=== PATIENT | female | born 1985 | race Caucasian/White ===

== ENCOUNTER 2024-03-02 09:15 | Emergency (ER) | payer OTHER, SELFPAY ==
[2024-03-02 09:18] VITALS: BP 139/105
--- NOTE | 2024-03-02 09:46 | ED.GENMED ---
History of Present Illness
General
Chief Complaint: Bowel Problem
Time Seen by Provider: 03/02/24 09:27
Travel History
Have you had any contact with someone who has COVID-19?: No
Do you have any symptoms of coronavirus? Fever > 100 degrees, chills, cough, shortness of breath, sore throat, loss of taste or smell, muscle aches, or headache?: No
History of Present Illness
History of Present Illness:
38-year-old female presents the emergency department for evaluation of constipation for the past 5 days. She is still passing gas. Denies any abdominal bloating or distention. She endorses significant life stressors as well. Has been trying once
daily Colace without relief
Past History
Past History
ED Past Medical History: Psychiatric
ED Past Surgical History: Other (Adenoids, myringotomy tubes)
Social History
Tobacco: Non-smoker
Alcohol: None
Personal: Single
Living: with family
Employment: Employed
Family History
Family History: Other (Noncontributory)
Review of Systems
Review of Systems
Allergies reviewed?: Yes
All Other Systems: ROS reviewed and negative except as documented in HPI and ROS
Phy Exam
Physical Exam
Physical Exam:
GEN: Well appearing, NAD, WDWN
HEENT: Oral mucosa moist, no scleral icterus
Cardiac: Regular rate
Lung: No respiratory distress, no tachypnea
Abd: Soft, non distended, non tender
Rectal: Exam performed w/ beverage inspection machine tender Zoë Ramirez at bedside. Minimal soft stool in rectum, no hemorrhoids, no bleeding
MSK: No gross deformity or injuries
Skin: Good color, no pallor or jaundice, no rashes
Neuro: AO x3, moves all extremities freely
Psych: Calm, cooperative
Course
Orders/Labs/Results
Orders:
Orders
03/02/24 09:48
Magnesium Citrate [Citroma] 300 ml PO ONCE ONE
Vital Signs
Initial and Last Documented VS:
Initial Vital Signs
Temp Pulse Resp BP Pulse Ox
98.7 F 89 18 139/105 98
03/02/24 09:18 03/02/24 09:18 03/02/24 09:18 03/02/24 09:18 03/02/24 09:18
Last Documented Vital Signs
Temp Pulse Resp BP Pulse Ox
98.7 F 89 18 139/105 98
03/02/24 09:18 03/02/24 09:18 03/02/24 09:18 03/02/24 09:18 03/02/24 09:18
MDM/Problems Addressed
MDM/Problems Addressed:
No clinical signs of bowel obstruction or fecal impaction. Laxatives recommended, increased fluids and daily fiber
*Critical Care Note
Total Time (30-74mins, 75-104mins- exclusive of procedures): Not Applicable
ED Attending Note
-
Portions of this chart may have been created with voice recognition software.� Occasional wrong word or��sound alike� substitutions may have occurred due to the inherent limitations of voice recognition software.
Discharge Plan
Departure
Patient Disposition: Home (Routine Discharge)
Date of Disposition: 03/02/24
Time of Disposition: 09:48
Patient with high blood pressure during this ER visit?: No
Discharge Problem:
Constipation
Instructions: Constipation, Adult (DC)
Prescriptions:
No Action
escitalopram oxalate 10 MG tablet
10 mg PO QPM
ondansetron 4 MG tablet,disintegrating
4 mg PO TIDPRN PRN (Reason: nausea/vomiting) Qty: 10 0RF
Referrals:
Romy Isaac MD [Family Provider] -
Activity Restrictions/Additional Instructions:
Increase dietary fiber
Increase daily fluids
Continue with Colace twice daily
Interventions
Interventions:
*Risk Screen - Suicide Last Done: 03/02/24 09:18
*General Assessment Last Done: 03/02/24 09:18
*Neglect/Abuse Screening Last Done: 03/02/24 09:18
*Nursing Disposition Last Done: 03/02/24 10:17
[facility]-Egaclqna[facility] Assessment Last Done: 03/02/24 10:15
Discharge Date and Time
Discharge Date/Time: 03/02/24 10:23
Print Language: TURKMEN
[2024-03-02] MEDS: CITROMA 300 ML PO (10:05)
== END 2024-03-02 10:23 | disposition home or self-care (01) ==
LOC: EMR 09:15
PROVIDERS: EMERGENCY PHYSICIAN Emergency Medicine; FAMILY PHYSICIAN Internal Medicine
DX: K59.00 Constipation, unspecified (principal)
CPT/HCPCS: 99282

== ENCOUNTER → 2025-04-02 19:16 | Outpatient (REF) | payer OTHER, SELFPAY | LOC: WDC 19:16 | PROVIDERS: ATTENDING PHYSICIAN Nurse Practitioner Adult Health | DX: Z12.31 Encounter for screening mammogram for malignant neoplasm of breast (principal) | CPT/HCPCS: 77063; 77067 ==

== ENCOUNTER → 2025-04-13 09:03 | Outpatient (REF) | payer OTHER, SELFPAY | LOC: WDC 09:03 | PROVIDERS: ATTENDING PHYSICIAN Nurse Practitioner Adult Health | DX: R92.8 Other abnormal and inconclusive findings on diagnostic imaging of breast (principal) | CPT/HCPCS: 76642 ==

== ENCOUNTER 2025-08-17 20:14 | Emergency (ER) | payer OTHER, SELFPAY ==
[2025-08-17 20:20] VITALS: BP 142/94
[2025-08-17 20:44] LABS: Hematocrit 36.5 % (37.0-47.0); Hemoglobin 12.3 g/dL (12.0-16.0); Mean Corp Hgb Conc. 33.7 g/dL (33.0-37.0); Mean Corpuscular Volume 81.1 fL (81.0-99.0); Nucleated Red Blood Cells % 0 %; Platelet Count 266 10^3/uL (130-400); Red Cell Dist. Width 12.0 % (11.5-14.5); Urine Character Clear (Clear)
[2025-08-17 21:08] LABS: Urine Red Blood Cell 0-2 /HPF (0-2); Urine Squamous Cell 26-30 /LPF (Few); Urine White Cell 0-2 /HPF (0-5)
[2025-08-17 21:19] LABS: ALT (SGPT) 15 U/L (0-35); AST (SGOT) 24 U/L (14-36); Albumin 5.0 g/dl (3.5-5.0); Alkaline Phosphatase 57 U/L (38-126); Blood Urea Nitrogen 8 mg/dl (7-17); Calcium 10.3 mg/dl (8.4-10.2); Carbon Dioxide 31 mmol/L (22-30); Chloride 101 mmol/L (98-107); Glucose 103 mg/dl (70-99); Lipase 66 U/L (23-300); Potassium 4.2 mmol/L (3.5-5.1); Sodium 137 mmol/L (135-145); Total Protein 8.3 g/dl (6.3-8.2); eGFR > 60.00
--- NOTE | 2025-08-17 23:27 | ED.GENMED ---
History of Present Illness
General
Chief Complaint: Abdominal Symptoms
Source: patient and spouse (Girlfriend/fianc�)
Exam Limitations: none
Time Seen by Provider: 08/17/25 22:28
Nursing documentation reviewed up to this point in time: agreed with
History of Present Illness
History of Present Illness:
HISTORY OF PRESENT ILLNESS
The patient is a 40-year-old female who was seen by PCP July 24 for complaints of burning pelvic pain, including a vaginal burning sensation. A urinalysis was performed and was negative, ruling out a urinary tract infection. A vaginal swab
returned positive for Odalis glabrata. The patient was treated with a one-time vaginal antifungal medication. She reported initial improvement within a couple of days. However, over the past several days, symptoms have relapsed, coinciding with
recent stress, including the passing of her grandmother yesterday.
The patient describes that the burning sensation affects the entire perineal area without any abnormal vaginal discharge, other than heavier menstrual flow with clots, which is unusual for her. She just completed her menstrual cycle, which lasted
for two to three days, beginning around August 11. Typically, her cycles are regular. She has noted cramping localized to the pelvic region during menstruation.
Additionally, recent blood tests indicated normal levels of Luteinizing Hormone and Follicle Stimulating Hormone, progesterone, estradiol and testosterone level. DHEA was elevated. The patient does not follow with a diesel pile hammer operator regularly. She did
not have a speculum exam during her last visit in July, PCP did a vaginal swab only.
She has had no nausea nor vomiting, moving her bowels normally. She denies dysuria nor urgency nor hematuria. No back pain or flank pain.
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
She resides with her girlfriend/fianc�. They maintain a monogamous relationship. No prior history of STD nor previous episodes of vulvovaginitis.
Her daily medications include Lexapro 10 mg, vitamin D supplement.
Past History
Past History
ED Past Medical History: Psychiatric
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 Left eye capsulotomy)
Social History
Tobacco: Non-smoker
Alcohol: None
Drug: None
Personal: Partner (Engaged)
Living: with family
Employment: Employed
Family History
Family History: Other (Noncontributory)
Phy Exam
Physical Exam
Physical Exam:
GENERAL: Alert , in no apparent distress. 40-year-old woman appears her stated age, bright and alert, pleasant, appears in no acute distress. Fianc� is accompanying.
EYE: anicteric
NECK: Supple, nontender, no meningismus, no significant adenopathy.
ENT: oral mucosa is moist. No rhinorrhea.
CARDIAC: Regular rate and rhythm. no murmur.
LUNGS: Clear breath sounds bilaterally, no acute respiratory distress, no wheezes/rales/rhonchi
ABDOMEN: Soft, nondistended, minimal suprapubic tenderness with deep palpation only, no r/g, no cvat. normoactive BS. No palpable masses.
: Speculum exam reveals moderate creamy to curd-like whitish vaginal discharge. There is no cervical nor vaginal excoriations nor soft tissue swelling. External vulva has very minimal erythema at vaginal introitus otherwise benign in appearance.
No ulcerations. No cervical motion tenderness. Uterus is normal in size. Nontender. No adnexal masses nor tenderness.
NEUROLOGICAL: Alert and oriented x3, no focal neuro deficits. Gait is head and steady.
SKIN: Warm and dry, normal color, skin intact. No rash.
MUSCULOSKELETAL: No C/C/E. peripheral pulses are full and equal b/l. No palpable tenderness.
PSYCH: Normal and appropriate interaction.
Course
Orders/Labs/Results
Orders:
Orders
08/17/25 20:36
Complete Blood Count/With Diff Urgent
Comprehensive Metabolic Panel Urgent
Lipase Urgent
Urinalysis Reflex To Culture Urgent
Date Specimen was Collected: 08/17/25
Time Specimen was Collected: 20:25
Urine Microscopic Reflex Cult Urgent
08/17/25 23:25
US Pelvis W Transvag Combined Urgent
Comment:
Reason For Exam: acute pelvic pain
08/17/25 23:38
Chlamydia/GC by PCR Urgent
BONNIE Source: Endo-Cervical
Specimen Description:
Source:: CERVIX
Date Specimen was Collected: 08/17/25
Time Specimen was Collected: 23:33
Genital Culture Urgent
BONNIE Source: Vagina
Specimen Description:
Date Specimen was Collected: 08/17/25
Time Specimen was Collected: 23:33
Abnormal Lab Results
08/17/25
20:36
Hct 36.5 L %
(37.0-47.0)
Carbon Dioxide 31 H mmol/L
(22-30)
Glucose 103 H mg/dl
(70-99)
Calcium 10.3 H mg/dl
(8.4-10.2)
Total Bilirubin 1.7 H mg/dl
(0.2-1.3)
Total Protein 8.3 H g/dl
(6.3-8.2)
Ur Occult Blood Reflex 2+ A
(Negative)
Urine Bacteria (Reflex) Few A
(Negative)
Urine Yeast Few A
(Negative)
Urine Albumin (Reflex) 1+ A
(Neg - Trace)
08/17/25 20:36
08/17/25 20:36
Vital Signs
Initial and Last Documented VS:
Initial Vital Signs
Temp Pulse Resp BP Pulse Ox
98.5 F 86 20 142/94 100
08/17/25 20:20 08/17/25 20:20 08/17/25 20:20 08/17/25 20:20 08/17/25 20:20
Last Documented Vital Signs
Temp Pulse Resp BP Pulse Ox
98.5 F 86 20 142/94 100
08/17/25 20:20 08/17/25 20:20 08/17/25 20:20 08/17/25 20:20 08/17/25 23:40
MDM/Problems Addressed
Differential Diagnosis Includes:
DIFFERENTIAL DIAGNOSIS
The Differential Diagnosis includes, in no particular order and is not limited to:
- Vulvovaginal candidiasis
- Bacterial vaginosis
- Pelvic inflammatory disease
- Urinary tract infection
- Hormonal changes related to menstrual cycle
- Bartholins cyst
- Contact dermatitis
- Vulvodynia
- Endometriosis
- Ovarian cyst
MDM/Problems Addressed:
Acute pelvic pain, vaginal burning
Heavy menstrual flow with clots and cramping
*Radiology
Radiology exam reviewed: radiology read reviewed (Pelvic ultrasound is unremarkable)
*Pulse Oximetry
SaO2: 100
Oxygen Mode of Delivery: Room air
Patient hypoxic: no
*Critical Care Note
Total Time (30-74mins, 75-104mins- exclusive of procedures): Not Applicable
Update Note
Update Note:
01:20
Pelvic ultrasound is unremarkable.
Genital cultures are pending.
Highly suspect partially treated vaginal candidiasis and will treat with a course of Diflucan.
Recommend follow-up with PCP for recheck.
ED Attending Note
-
Portions of this chart may have been created with voice recognition software.� Occasional wrong word or��sound alike� substitutions may have occurred due to the inherent limitations of voice recognition software.
Discharge Plan
Departure
Patient Disposition: Home (Routine Discharge)
Date of Disposition: 08/18/25
Time of Disposition: 01:24
Patient with high blood pressure during this ER visit?: No
Condition: Good
Discharge Problem:
Candidiasis of vagina, Pelvic pain
Instructions: Vaginal yeast infection in adults - ED (DC)
Prescriptions:
New
fluconazole 150 mg tablet
150 mg PO ONCE Qty: 1 0RF
No Action
escitalopram oxalate 10 MG tablet
10 mg PO QPM
ondansetron 4 MG tablet,disintegrating
4 mg PO TIDPRN PRN (Reason: nausea/vomiting) Qty: 10 0RF
Referrals:
Evaristo Robert CRNP [Family Provider, Internal Medicine] - Call in 1-3 days for appt
Interventions
Interventions:
*Risk Screen - Suicide Last Done: 08/17/25 20:20
*General Assessment Last Done: 08/17/25 20:20
*Neglect/Abuse Screening Last Done: 08/17/25 20:20
Discharge Date and Time
Print Language: GREEK
[2025-08-18] MEDS: DIFLUCAN 150 MG PO (01:58)
== END 2025-08-18 02:04 | disposition home or self-care (01) ==
LOC: EMR 20:14
PROVIDERS: Emergency Medicine; EMERGENCY PHYSICIAN Emergency Medicine; FAMILY PHYSICIAN Registered Nurse
DX: B37.31 Acute candidiasis of vulva and vagina (principal); R10.20 Pelvic and perineal pain unspecified side; Z79.899 Other long term (current) drug therapy
CPT/HCPCS: 99284; 76830; 76856; 80053; 81003; 81015; 83690; 85025; 87070; 87077; 87147; 87491; 87591

== ENCOUNTER 2025-08-22 14:13 | Emergency (ER) | payer OTHER, SELFPAY ==
[2025-08-22 14:16] VITALS: BP 144/95
[2025-08-22 15:05] LABS: Hematocrit 39.2 % (37.0-47.0); Hemoglobin 13.1 g/dL (12.0-16.0); Mean Corp Hgb Conc. 33.4 g/dL (33.0-37.0); Mean Corpuscular Volume 83.2 fL (81.0-99.0); Nucleated Red Blood Cells % 0 %; Platelet Count 251 10^3/uL (130-400); Red Cell Dist. Width 11.9 % (11.5-14.5)
[2025-08-22 15:19] LABS: HCG, Serum Qualitative Screen Negative
[2025-08-22 15:26] LABS: ALT (SGPT) 12 U/L (0-35); AST (SGOT) 20 U/L (14-36); Albumin 5.0 g/dl (3.5-5.0); Alkaline Phosphatase 60 U/L (38-126); Blood Urea Nitrogen 7 mg/dl (7-17); Calcium 10.0 mg/dl (8.4-10.2); Carbon Dioxide 25 mmol/L (22-30); Chloride 99 mmol/L (98-107); Glucose 93 mg/dl (70-99); Lipase 58 U/L (23-300); Potassium 4.1 mmol/L (3.5-5.1); Sodium 135 mmol/L (135-145); Total Protein 8.1 g/dl (6.3-8.2); eGFR > 60.00
[2025-08-22 16:28] LABS: Urine Character Clear (Clear)
--- NOTE | 2025-08-22 17:22 | ED.GENMED ---
History of Present Illness
General
Chief Complaint: Abdominal Pain
Time Seen by Provider: 08/22/25 16:59
History of Present Illness
History of Present Illness:
40-year-old female presents to the emergency department for evaluation of persistent suprapubic and left flank pain that has been ongoing intermittently for 1 month but worsened in the past week. She was initially seen by her primary care physician
and treated for a vaginal candidiasis which did not improve her symptoms. She was seen in this emergency department 5 days ago and had a pelvic ultrasound that was unremarkable. Pain continues to be persistent. She does report mild dysuria but no
urgency or frequency. No change in appetite or intake, denies diarrhea or melena.
Past History
Past History
ED Past Medical History: Psychiatric
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 Left eye capsulotomy)
Social History
Tobacco: Non-smoker
Alcohol: None
Drug: None
Personal: Partner (Engaged)
Living: with family
Employment: Employed
Family History
Family History: Other (Noncontributory)
Review of Systems
Review of Systems
Allergies reviewed?: Yes
All Other Systems: ROS reviewed and negative except as documented in HPI and ROS
Phy Exam
Physical Exam
Physical Exam:
GEN: Well appearing, NAD, WDWN
HEENT: Oral mucosa moist, no scleral icterus
Cardiac: Regular rate
Lung: No respiratory distress, no tachypnea
Abdomen: Soft, grossly nontender to light or deep palpation, no CVA tenderness bilaterally
MSK: No gross deformity or injuries
Skin: Good color, no pallor or jaundice, no rashes
Neuro: AO x3, moves all extremities freely
Psych: Calm, cooperative
Course
Orders/Labs/Results
Orders:
Orders
08/22/25 14:21
Test Result ONCE
08/22/25 14:31
Complete Blood Count/With Diff Urgent
Comprehensive Metabolic Panel Urgent
HCG, Serum Qualitative Screen Urgent
Lipase Urgent
08/22/25 15:52
Urinalysis Reflex To Culture Urgent
Date Specimen was Collected: 08/22/25
Time Specimen was Collected: 14:21
08/22/25 17:22
US Renal With Bladder Urgent
Comment:
Reason For Exam: L flank pain
08/22/25 19:08
CT Abd/Pel (IV only)-DH only Urgent
Comment:
Reason For Exam: lower abd pain
Abnormal Lab Results
08/22/25 08/22/25
14:31 15:52
MPV 10.8 H fL
(7.4-10.4)
Absolute Monos (auto) 0.7 H 10^3/uL
(0.1-0.6)
Total Bilirubin 1.5 H mg/dl
(0.2-1.3)
Urine Ketones 3+ A
(Negative)
08/22/25 14:31
08/22/25 14:31
Vital Signs
Initial and Last Documented VS:
Initial Vital Signs
Temp Pulse Resp BP Pulse Ox
98.2 F 91 16 144/95 100
08/22/25 14:16 08/22/25 14:16 08/22/25 14:16 08/22/25 14:16 08/22/25 14:16
Last Documented Vital Signs
Temp Pulse Resp BP Pulse Ox
98.2 F 91 16 144/95 100
08/22/25 14:16 08/22/25 14:16 08/22/25 14:16 08/22/25 14:16 08/22/25 17:22
MDM/Problems Addressed
MDM/Problems Addressed:
Despite unremarkable renal bladder ultrasound the patient was quite insistent that she wished to undergo a CT scan due to persistent pain. This also did not show any acute pathology. Given that she has some dysuria and flank pain I recommend
urology follow-up first, do not see this is a gastroenterology issue
*Pulse Oximetry
SaO2: 100
Oxygen Mode of Delivery: Room air
Patient hypoxic: no
*Critical Care Note
Total Time (30-74mins, 75-104mins- exclusive of procedures): Not Applicable
ED Attending Note
-
Portions of this chart may have been created with voice recognition software.� Occasional wrong word or��sound alike� substitutions may have occurred due to the inherent limitations of voice recognition software.
Discharge Plan
Departure
Patient Disposition: Home (Routine Discharge)
Date of Disposition: 08/22/25
Time of Disposition: 20:34
Patient with high blood pressure during this ER visit?: No
Discharge Problem:
Lower abdominal pain
Instructions: Abdominal Pain
Prescriptions:
No Action
escitalopram oxalate 10 MG tablet
10 mg PO QPM
ondansetron 4 MG tablet,disintegrating
4 mg PO TIDPRN PRN (Reason: nausea/vomiting) Qty: 10 0RF
fluconazole 150 mg tablet
150 mg PO ONCE Qty: 1 0RF
Referrals:
UNKNOWN - PT NOT,INTERVIEWE [Family Provider]
Activity Restrictions/Additional Instructions:
Follow up with your primary doctor
Interventions
Interventions:
*Risk Screen - Suicide Last Done: 08/22/25 14:16
*General Assessment Last Done: 08/22/25 14:16
*Neglect/Abuse Screening Last Done: 08/22/25 14:16
*ED COVID-19 Vaccine History Last Done: 08/22/25 14:16
*ED Influenza Vaccine History Last Done: 08/22/25 14:16
[facility] Risk Assessment Tool Last Done: 08/22/25 16:27
*Nursing Disposition Last Done: 08/22/25 21:03
YJ-Rrfuqn-Aibwyfcbmh Assessment Last Done: 08/22/25 16:27
Discharge Date and Time
Discharge Date/Time: 08/22/25 20:40
Print Language: MONGOLIAN
== END 2025-08-22 20:40 | disposition home or self-care (01) ==
LOC: EMR 14:13
PROVIDERS: EMERGENCY PHYSICIAN Emergency Medicine
DX: B37.31 Acute candidiasis of vulva and vagina (principal); R10.30 Lower abdominal pain, unspecified
CPT/HCPCS: 99284; 74177; 76770; 80053; 81003; 83690; 84703; 85025; Q9967